=== PATIENT | male | born 1945 | race African-American/Black ===

== ENCOUNTER 2021-05-11 09:36 | Inpatient (IN) ==
[2021-05-11 11:29] LABS: Basophils % 0.1 % (0.0-0.8); Eosinophils # 0.4 10*3/uL (0.0-0.87); Eosinophils % 6.1 % (0.00-10.9); Hematocrit 21.9 VOL% (42.0-52.0); Hemoglobin 7.1 GM/DL (14.0-18.0); Immature Granulocytes % 0.3 %; Immature Granulocytes Absolute 0.02 #; Lymphocytes # 1.4 10*3/uL (1.4-4.0); Lymphocytes % 20.1 % (21.2-54.2); Mean Corpuscular HGB Conc 32.4 GM/DL (32-36); Mean Corpuscular Volume 95.2 FL (87-102); Monocytes % 7.4 % (1.7-12.7); Platelet Count 378 T/CUMM (130-400); Red Cell Distribution Width 14.8 % (9.3-17.3); White Blood Count 7.1 T/CUMM (4-12)
[2021-05-11 11:39] LABS: INR 1.1; PT Patient Result 12.1 SECS (10.5-12.0)
[2021-05-11 11:45] LABS: Alanine Aminotransferase 15 U/L (16-61); Albumin 2.5 G/DL (3.4-5.0); Alkaline Phosphatase 75 U/L (45-117); Aspartate Amino Transferase 22 U/L (0-37); Bilirubin,Total < 0.39 MG/DL (0.20-1.00); Blood Urea Nitrogen 25 MG/DL (7-18); Calcium 8.8 MG/DL (8.5-10.1); Carbon Dioxide 30 MMOL/L (21-32); Estimated Glom Filtration Rate 80 ML/MIN; Glucose 93 MG/DL (74-106); Osmolality,Calculated 286.1 MOS/KG (273-304); Potassium 4.2 MMOL/L (3.5-5.1); Sodium 142 MMOL/L (136-145); Total Protein 6.9 G/DL (6.4-8.2)
[2021-05-11 11:56] LABS: Bilirubin,Urine Negative (Negative); Blood, Urine Large mg/dL (Negative); Glucose,Urine (UA) Negative (Negative); Ketones,Urine Negative (Negative); Nitrite,Urine Negative (Negative); Protein,Urine Negative; RBC,Urine 233 /HPF (0-4); Urine Appearance CLEAR (Clear); Urine Color Yellow (Yellow); Urine Specific Gravity 1.015 (1.001-1.035)
[2021-05-11] MEDS ORDERED: ONDANSETRON 4 MG/2 ML VIAL IV PRN (14:26)
[2021-05-11] MEDS ORDERED: hydrALAZINE 20 MG/1 ML VIAL IV PRN (14:26)
[2021-05-11] MEDS ORDERED: GLUCAGON 1 MG VIAL IM PRN (14:26)
[2021-05-11] MEDS ORDERED: SODIUM CHLORIDE 0.9% 1,000 ML IV PRN (14:33)
[2021-05-11] MEDS: SODIUM CHLORIDE 0.45% 1,000 ML IV SCH (14:40)
[2021-05-11] MEDS ORDERED: DEXTROSE 10% 250 ML BAG IV PRN (14:51)
[2021-05-11] MEDS: PANTOPRAZOLE 40 MG TABLET PO SCH (16:40)
[2021-05-11] MEDS: cefTRIAXone 1,000 MG in SODIUM CHLORIDE 0.9% 100 ML IV SCH (16:40)
[2021-05-11 19:28] LABS: Hematocrit 32.2 VOL% (42.0-52.0)
[2021-05-11 19:29] LABS: Hemoglobin 10.1 GM/DL (14.0-18.0)
[2021-05-12] MEDS: ACETAMINOPHEN 325 MG TABLET PO PRN ×3 (00:37→20:36)
[2021-05-12] MEDS: SODIUM CHLORIDE 0.45% 1,000 ML IV SCH ×3 (03:36→23:48)
[2021-05-12 06:14] LABS: Basophils % 0.2 % (0.0-0.8); Eosinophils # 0.5 10*3/uL (0.0-0.87); Eosinophils % 4.8 % (0.00-10.9); Hematocrit 28.1 VOL% (42.0-52.0); Hemoglobin 9.2 GM/DL (14.0-18.0); Immature Granulocytes % 0.5 %; Immature Granulocytes Absolute 0.05 #; Lymphocytes # 2.1 10*3/uL (1.4-4.0); Mean Corpuscular HGB Conc 32.7 GM/DL (32-36); Mean Corpuscular Volume 93.7 FL (87-102); Mean Platelet Volume 9.6 FL (9.6-12.0); Monocytes % 8.1 % (1.7-12.7); Neutrophils % 65.4 % (38.7-73.9); Platelet Count 420 T/CUMM (130-400); Red Cell Distribution Width 15.6 % (9.3-17.3); White Blood Count 9.9 T/CUMM (4-12)
[2021-05-12 06:44] LABS: Calcium 8.1 MG/DL (8.5-10.1); Potassium 3.8 MMOL/L (3.5-5.1)
[2021-05-12] MEDS: PANTOPRAZOLE 40 MG TABLET PO SCH (08:45)
[2021-05-12 12:43] LABS: Hematocrit 28.7 VOL% (42.0-52.0); Hemoglobin 9.3 GM/DL (14.0-18.0)
[2021-05-12] MEDS ORDERED: POLYETHYLENE GLYCOL POWDER 17 GM PACK PO PRN (16:07)
[2021-05-12] MEDS: cefTRIAXone 1,000 MG in SODIUM CHLORIDE 0.9% 100 ML IV SCH (16:56)
[2021-05-12] MEDS: ATORVASTATIN 10 MG TABLET PO SCH (20:35)
[2021-05-13] MEDS: SODIUM CHLORIDE 0.45% 1,000 ML IV SCH ×2 (05:19→05:33)
[2021-05-13 05:23] LABS: Basophils % 0.4 % (0.0-0.8); Eosinophils # 0.7 10*3/uL (0.0-0.87); Eosinophils % 6.8 % (0.00-10.9); Hematocrit 29.1 VOL% (42.0-52.0); Hemoglobin 9.8 GM/DL (14.0-18.0); Immature Granulocytes % 0.6 %; Immature Granulocytes Absolute 0.06 #; Lymphocytes # 1.9 10*3/uL (1.4-4.0); Lymphocytes % 18.8 % (21.2-54.2); Mean Corpuscular HGB Conc 33.7 GM/DL (32-36); Mean Corpuscular Volume 92.4 FL (87-102); Mean Platelet Volume 9.4 FL (9.6-12.0); Monocytes % 7.9 % (1.7-12.7); Neutrophils % 65.5 % (38.7-73.9); Platelet Count 444 T/CUMM (130-400); Red Blood Count 3.15 MC/CUMM (3.8-5.5); Red Cell Distribution Width 15.1 % (9.3-17.3); White Blood Count 9.9 T/CUMM (4-12)
[2021-05-13 05:54] LABS: Calcium 8.9 MG/DL (8.5-10.1); Osmolality,Calculated 273.8 MOS/KG (273-304); Potassium 3.6 MMOL/L (3.5-5.1)
[2021-05-13] MEDS: MULTIVITAMIN (CENTRUM) TABLET PO SCH (08:41)
[2021-05-13] MEDS: FERROUS SULFATE 325 MG TABLET PO SCH (08:42)
[2021-05-13] MEDS: DOCUSATE SODIUM 100 MG CAPSULE PO SCH (08:42)
[2021-05-13] MEDS: PANTOPRAZOLE 40 MG TABLET PO SCH (08:42)
[2021-05-13] MEDS ORDERED: NON-FORMULARY MEDICATION (Omeprazole 20 mg Capsule,Delayed Release(Dr/Ec)) PO SCH (09:00)
[2021-05-13] MEDS: ACETAMINOPHEN 325 MG TABLET PO PRN (11:39)
[2021-05-13] MEDS: amLODIPine 5 MG TABLET PO SCH (11:39)
[2021-05-13] MEDS: DIVALPROEX 500 MG TABLET PO SCH ×2 (11:40→20:57)
[2021-05-13] MEDS: cefTRIAXone 1,000 MG in SODIUM CHLORIDE 0.9% 100 ML IV SCH (16:40)
[2021-05-13] MEDS: ATORVASTATIN 10 MG TABLET PO SCH (20:57)
[2021-05-14 03:51] LABS: Basophils # 0.1 10*3/uL (0.0-0.2); Basophils % 0.5 % (0.0-0.8); Eosinophils # 0.8 10*3/uL (0.0-0.87); Hematocrit 29.6 VOL% (42.0-52.0); Hemoglobin 9.7 GM/DL (14.0-18.0); Immature Granulocytes % 0.5 %; Immature Granulocytes Absolute 0.06 #; Lymphocytes # 2.3 10*3/uL (1.4-4.0); Lymphocytes % 20.6 % (21.2-54.2); Mean Corpuscular HGB Conc 32.8 GM/DL (32-36); Mean Corpuscular Volume 92.5 FL (87-102); Monocytes % 6.8 % (1.7-12.7); Neutrophils % 64.6 % (38.7-73.9); Platelet Count 486 T/CUMM (130-400); Red Cell Distribution Width 14.8 % (9.3-17.3); White Blood Count 11.1 T/CUMM (4-12)
[2021-05-14] MEDS: amLODIPine 5 MG TABLET PO SCH (09:35)
[2021-05-14] MEDS: DIVALPROEX 500 MG TABLET PO SCH ×2 (09:37→20:54)
[2021-05-14] MEDS: FERROUS SULFATE 325 MG TABLET PO SCH (09:37)
[2021-05-14] MEDS: DOCUSATE SODIUM 100 MG CAPSULE PO SCH (09:37)
[2021-05-14] MEDS: MULTIVITAMIN (CENTRUM) TABLET PO SCH (09:37)
[2021-05-14 09:42] LABS: % Iron Saturation 11.4 % (18-50)
[2021-05-14] MEDS ORDERED: LIDOCAINE 2% TOP JELLY 20 ML VIAL INTRAURETH ONE (10:10)
[2021-05-14 10:35] LABS: Folate 17.08 NG/ML (5.38-24.0)
[2021-05-14] MEDS: ACETAMINOPHEN 325 MG TABLET PO PRN (11:35)
[2021-05-14] MEDS ORDERED: hydrALAZINE 20 MG/1 ML VIAL IV PRN (16:01)
[2021-05-14] MEDS: cefTRIAXone 1,000 MG in SODIUM CHLORIDE 0.9% 100 ML IV SCH (16:38)
[2021-05-14] MEDS: ATORVASTATIN 10 MG TABLET PO SCH (20:54)
[2021-05-15 05:09] LABS: Basophils # 0.1 10*3/uL (0.0-0.2); Basophils % 0.6 % (0.0-0.8); Eosinophils # 0.7 10*3/uL (0.0-0.87); Eosinophils % 7.4 % (0.00-10.9); Hematocrit 28.7 VOL% (42.0-52.0); Hemoglobin 9.3 GM/DL (14.0-18.0); Immature Granulocytes % 0.6 %; Immature Granulocytes Absolute 0.05 #; Lymphocytes # 2.2 10*3/uL (1.4-4.0); Lymphocytes % 24.6 % (21.2-54.2); Mean Corpuscular HGB Conc 32.4 GM/DL (32-36); Mean Corpuscular Volume 94.1 FL (87-102); Mean Platelet Volume 9.1 FL (9.6-12.0); Monocytes % 8.3 % (1.7-12.7); Neutrophils % 58.5 % (38.7-73.9); Platelet Count 488 T/CUMM (130-400); Red Blood Count 3.05 MC/CUMM (3.8-5.5)
[2021-05-15 05:35] LABS: Calcium 9.2 MG/DL (8.5-10.1); Osmolality,Calculated 282.3 MOS/KG (273-304); Potassium 3.7 MMOL/L (3.5-5.1)
[2021-05-15] MEDS: MULTIVITAMIN (CENTRUM) TABLET PO SCH (08:29)
[2021-05-15] MEDS: FERROUS SULFATE 325 MG TABLET PO SCH (08:30)
[2021-05-15] MEDS: DOCUSATE SODIUM 100 MG CAPSULE PO SCH (08:30)
[2021-05-15] MEDS: DIVALPROEX 500 MG TABLET PO SCH ×2 (08:30→22:40)
[2021-05-15] MEDS: amLODIPine 5 MG TABLET PO SCH (08:30)
[2021-05-15] MEDS: cefTRIAXone 1,000 MG in SODIUM CHLORIDE 0.9% 100 ML IV SCH (15:37)
[2021-05-15] MEDS: ATORVASTATIN 10 MG TABLET PO SCH (22:40)
[2021-05-16 05:31] LABS: Basophils # 0.1 10*3/uL (0.0-0.2); Basophils % 0.5 % (0.0-0.8); Eosinophils # 0.6 10*3/uL (0.0-0.87); Eosinophils % 6.5 % (0.00-10.9); Hematocrit 29.1 VOL% (42.0-52.0); Hemoglobin 9.3 GM/DL (14.0-18.0); Immature Granulocytes % 0.6 %; Immature Granulocytes Absolute 0.06 #; Lymphocytes # 2.6 10*3/uL (1.4-4.0); Lymphocytes % 26.9 % (21.2-54.2); Mean Corpuscular Volume 94.8 FL (87-102); Mean Platelet Volume 9.2 FL (9.6-12.0); Monocytes % 7.7 % (1.7-12.7); Neutrophils % 57.8 % (38.7-73.9); Platelet Count 506 T/CUMM (130-400); Red Blood Count 3.07 MC/CUMM (3.8-5.5); Red Cell Distribution Width 14.8 % (9.3-17.3); White Blood Count 9.7 T/CUMM (4-12)
[2021-05-16 05:42] LABS: Calcium 9.3 MG/DL (8.5-10.1); Osmolality,Calculated 279.5 MOS/KG (273-304); Potassium 3.7 MMOL/L (3.5-5.1)
[2021-05-16 06:00] LABS: Eosinophils 6 % (0-10); Hypochromia 1+; Lymphocytes 27 % (20-55); Microcytosis 1+; Segmented Neutrophils 59 % (50-85); Target Cells Slight; Total Cells Counted 100
[2021-05-16 07:03] VITALS: BP 155/91
== END 2021-05-16 08:29 | disposition swing bed (61) | DRG 813 ==
LOC: N.EDINP 09:36 → N.ED 09:36 → SUATTDRO 14:26 → N.EDINP 17:33 → N.3E 17:53 → SUATTDRO 05-13 09:34
PROVIDERS: ADMIT Phlebology; ATTEND Internal Medicine